=== PATIENT | female | born 1940 | race Caucasian/White ===

== ENCOUNTER → 2016-12-21 | Outpatient (CLI) | payer BC ==
[2016-12-21 12:27] LABS: CALCIUM 9.5 mg/dl (8.5-10.1)
[2016-12-21 12:35] LABS: CHOLESTEROL/HDL RATIO 2.2
== END | disposition home or self-care (01) ==
LOC: C.LAB 10:08
PROVIDERS: ATTEND Family Medicine
DX: E55.9 Vitamin D deficiency, unspecified (principal); M81.0 Age-related osteoporosis without current pathological fracture; E78.5 Hyperlipidemia, unspecified

== ENCOUNTER → 2017-03-27 | Outpatient (CLI) | payer BC ==
[2017-03-27 10:35] LABS: CHOLESTEROL/HDL RATIO 2.4
== END | disposition home or self-care (01) ==
LOC: C.LAB 09:19
PROVIDERS: ATTEND Family Medicine
DX: E78.5 Hyperlipidemia, unspecified (principal)

== ENCOUNTER → 2017-09-27 | Outpatient (CLI) | payer BC | END | disposition home or self-care (01) | LOC: C.LAB 10:26 | PROVIDERS: ATTEND Family Medicine | DX: E78.5 Hyperlipidemia, unspecified (principal); Z23 Encounter for immunization ==

== ENCOUNTER 2024-06-24 18:16 | Observation (INO) ==
[2024-06-24 22:59] LABS: Basophils # (auto) 0.09 K/uL (0.00-0.20); Basophils % (auto) 0.7 %; Eosinophils # (auto) 0.26 K/uL (0.00-0.50); Eosinophils % (auto) 2.1 %; Hemoglobin 12.6 g/dl (12.0-16.0); Immature Granulocytes # (auto) 0.04 K/uL (0.01-0.20); Immature Granulocytes % (auto) 0.3 %; Lymphocytes # (auto) 2.12 K/uL (1.20-3.40); Lymphocytes % (auto) 16.9 %; Mean Corpuscular Hemoglobin 28.9 pg (25.0-34.0); Mean Corpuscular Hgb Conc 31.5 g/dL (32.0-36.0); Mean Corpuscular Volume 91.7 fL (80.0-100.0); Mean Platelet Volume 10.6 fL (9.4-12.4); Monocytes # (auto) 0.66 K/uL (0.11-0.59); Monocytes % (auto) 5.3 %; Neutrophils # (auto) 9.36 K/uL (1.40-6.50); Neutrophils % (auto) 74.7 %; Platelet Count 278 K/uL (130-400); RDW Coefficient of Variation 14.6 % (11.5-14.5); RDW Standard Deviation 49.7 fL (36.4-46.3); Red Blood Count 4.36 M/uL (4.20-5.40); White Blood Count 12.53 K/ul (4.8-10.8)
[2024-06-24 23:12] LABS: Albumin Globulin Ratio 0.9 (0.9-2); Albumin Level 3.5 gm/dl (3.4-5.0); BUN Creatinine Ratio 19.1 (10-20); Bilirubin,Total 0.4 mg/dl (0.2-1.0); Calcium 9.2 mg/dl (8.6-10.3); Creatinine Clr Calc Pharmacy 39.9 ml/min; Globulin 3.7 gm/dl (2.5-4.0); Magnesium 2.2 mg/dl (1.7-2.4); Potassium 4.5 mmol/L (3.5-5.1); Total Protein 7.2 gm/dl (6.0-8.3)
[2024-06-24 23:19] LABS: Troponin I High Sensitivity 9.9 pg/ml (0-14)
[2024-06-24 23:29] LABS: Thyroid Stimulating Hormone 1.232 uIu/ml (0.300-4.500)
--- NOTE | 2024-06-24 23:30 | CT Scan Report ---
Exam(s): CT T SPINE EXAM: CT Thoracic Spine Without Intravenous Contrast CLINICAL HISTORY: Reason for exam: fall. TECHNIQUE: Axial computed tomography images of the thoracic spine without intravenous contrast. CTDI is 36.43 mGy and DLP is 1797.53 mGy-cm. Automated exposure control was utilized for the study. A dose lowering technique was utilized adhering to the principles of ALARA. COMPARISON: No relevant prior studies available. FINDINGS: Vertebrae: No fracture or malalignment. Soft tissues: Fibrotic changes in the lungs. IMPRESSION: No fracture or malalignment. Electronically signed by: Sanya Cardona MD 06/24/24 23:29 PM
--- NOTE | 2024-06-24 23:34 | CT Scan Report ---
Exam(s): CT L SPINE EXAM: CT Lumbar Spine Without Intravenous Contrast CLINICAL HISTORY: Reason for exam: fall. TECHNIQUE: Axial computed tomography images of the lumbar spine without intravenous contrast. CTDI is 36.43 mGy and DLP is 1797.53 mGy-cm. Automated exposure control was utilized for the study. A dose lowering technique was utilized adhering to the principles of ALARA. COMPARISON: No relevant prior studies available. FINDINGS: Vertebrae: No acute fracture or malalignment. Chronic superior endplate compression deformity at L3. No malalignment. No spinal canal or foraminal stenosis. Sacrum/coccyx: Insufficiency fracture in the left sacral ala. Discs/spinal canal/neural foramina: See above. Soft tissues: Unremarkable. IMPRESSION: 1. No acute fracture or malalignment. 2. Insufficiency fracture in the left sacral ala. 3. Chronic compression deformity of L3. Electronically signed by: Sanya Cardona MD 06/24/24 23:33 PM
[2024-06-24 23:38] LABS: Appearance Urine Cloudy (Clear); Bacteria Urine Automated 4+ (None Seen); Bilirubin Urine Negative (Negative); Blood Urine Negative (Negative); Cast Urine Automated 0-2 /lpf (0-2); Color Urine Yellow; Epithelial Cell Urine Auto 0-2 /hpf (0-2); Glucose Urine UA Negative (Negative); Ketones Urine Trace (Negative); Leukocyte Esterase Urine 1+ (Negative); Nitrite Urine Positive (Negative); Protein Urine Negative (Negative); RBC Urine Automated 0-2 /hpf (0-2); Specific Gravity Urine 1.018 (1.000-1.030); Urobilinogen Urine Negative (Negative); pH Urine 6.5 (4.5-7.5)
[2024-06-24] MEDS: SODIUM CHLORIDE 0.9% 1,000 ML IV ONE (23:38)
[2024-06-25] MEDS: cefTRIAXone SODIUM 2,000 MG/50 ML BAG IV STA (00:02)
--- NOTE | 2024-06-25 00:13 | XRay Report ---
Exam(s): XR CXR 1 VIEW EXAM: XR Chest, 1 View CLINICAL HISTORY: Reason for exam: weakness. TECHNIQUE: Frontal view of the chest. COMPARISON: Prior chest x-ray from December 23, 2015 FINDINGS: Lungs: Mild to moderate peribronchial thickening of the central and lower lobe bronchi with increased interstitial opacities throughout the lungs and patchy opacity at the left lung base. There is hyperinflation lungs and flattening of the diaphragms. Pleural space: Unremarkable. No pneumothorax. Heart: Unremarkable. No cardiomegaly. Mediastinum: Unremarkable. Normal mediastinal contour. Bones/joints: Diffuse osteopenia throughout the visualized bones. No acute fracture. IMPRESSION: Left lower lobe infiltrate. Electronically signed by: Yanely Tang MD 06/25/24 00:12 AM
--- NOTE | 2024-06-25 00:43 | CT Scan Report ---
Exam(s): CT HEAD Without Contrast EXAM: CT Head Without Intravenous Contrast CLINICAL HISTORY: Reason for exam: fall. TECHNIQUE: Axial computed tomography images of the head/brain without intravenous contrast. CTDI is 36.43 mGy and DLP is 1797.53 mGy-cm. Automated exposure control was utilized for the study. A dose lowering technique was utilized adhering to the principles of ALARA. COMPARISON: Prior head CT from June 23, 2024. FINDINGS: Brain: Unremarkable. No hemorrhage. Mild nonspecific Weitlaner changes. No edema. Ventricles: Moderate ventriculomegaly. Bones/joints: Unremarkable. No acute fracture. Soft tissues: Unremarkable. Sinuses: Unremarkable as visualized. No acute sinusitis. Mastoid air cells: Unremarkable as visualized. No mastoid effusion. IMPRESSION: No evidence of acute intracranial pathology. Electronically signed by: Yanely Tang MD 06/25/24 00:42 AM
--- NOTE | 2024-06-25 01:10 | Emergency Department Note ---
Impression & Plan Fall, Dementia, Pneumonia, Acute UTI ED Provider Note NAME: ALEKS AGARWAL AGE: 84 SEX: F : 1940 ARRIVES VIA: Ambulance INFORMANT: [Patient][] ED PROVIDER(S): [Jacoby Ramos MD] CHIEF COMPLAINT: Fall HISTORY OF PRESENT ILLNESS: The patient is an 84-year-old female who was here yesterday for a fall. CT imaging of the brain was performed and there was no acute intracranial bleeding. The patient does take blood thinning agents. The patient presents back today with a second fall. This time, she slid off of a chair. She was complaining of some back pain. The patient has dementia and is a poor historian. The is at bedside and was able to describe what happened to her today. The patient herself denies any complaints and does not really want to be in the ED. Her is concerned about a new injury. The believes his has been at her typical baseline health. He has not noticed any new issues. PMHx/PSHx/Social Hx: See Below PHYSICAL EXAM: GENERAL: Patient is in no acute distress. Quite anxious. HEENT: The patient does have an older contusion to the lateral aspect of the right eye. No bony step-off. NECK: No stridor, no adenopathy, nontender cervical spine, trachea is midline. LUNGS: Clear to auscultation bilaterally, no wheeze, no rhonchi, breath sounds equal. HEART: Somewhat irregular rhythm, mildly tachycardic, no obvious murmur. ABDOMEN: Soft, nontender, no peritonitis. EXTREMITIES: No cyanosis, full range of motion of all the joints without pain or difficulty. NEUROLOGIC: Anxious, confused, does move all extremities. SKIN: No jaundice, no diaphoresis. Back: She seems tender to the mid back although, there is no bony step-off, no contusion seen. DIFFERENTIAL DIAGNOSIS: Fracture, sprain, strain, UTI, pneumonia, electrolyte imbalance, dehydration, among others. EMERGENCY DEPARTMENT PROCEDURES: MEDICAL DECISION MAKING: There is a mild leukocytosis, this would be consistent with infection. There was a normal hemoglobin and platelet count. No renal failure or significant electrolyte abnormality. No concerning liver enzyme elevation. The patient appeared to be in a euthyroid state. ECG shows atrial fibrillation, no obvious ischemia. Cardiac enzyme testing x 1 is not consistent with acute cardiac injury. Patient appears to be in a euthyroid state. Urinalysis does show findings of infection. Chest x-ray shows a left lung pneumonia. Brain CT shows no acute bleed or mass effect. Thoracic and lumbar spine CT showed no acute fracture. Patient appears to have pneumonia as well as a UTI. I suspect these infections have caused some increasing weakness, confusion and likely, led to her falling the last few days. The patient was given IV ceftriaxone as antibiotic therapy. She had been ordered for Haldol to help with agitation however, this was apparently not needed. I spoke with the family, I spoke with case management. The patient is not safe for discharge. She will require a hospital stay, antibiotic therapy, may be some PT and OT and potentially placement if she is not able to be properly cared for by her . The on-call hospitalist was consulted. Prior/Outside records/notes reviewed: Today's EMS notes describing her presentation and transport to this hospital. ECG per my interpretation: Indication was fall. The ECG shows atrial fibrillation with a rate of 115. There is a PVC present. There is some nonspecific ST changes, no acute ST elevation. QTc was 423. Continuous Cardiac Monitoring per my interpretation: An order was placed for continuous cardiac monitoring. The monitor shows a rate of 14 with atrial fibrillation. Imaging/x-ray results per my interpretation: Chest x-ray shows a left base pneumonia. Chronic Medical/Social conditions affecting care: Advanced age, history of dementia. Care/Management discussed with: Case management, the on-call hospitalist. Level of care consideration(s): After review of the information above and other included data: --I believe the patient requires escalation of care to admission DISPOSITION: Admission Past Med/Surg History Problem List Acute UTI (Acute) Pneumonia (Acute) Fall (Acute) Agitation Confusion Urinary tract infection Left lower lobe pneumonia Contusion of right eyebrow (Acute) Fall from standing (Acute) Actinic keratosis (Acute) Bronchiectasis (Acute) Cerumen impaction (Acute) Cough (Acute) Dyslipidemia (Acute) Eustachian tube dysfunction (Acute) Glaucoma (Acute) History of basal cell carcinoma (Acute) History of squamous cell carcinoma of skin (Acute) Inflamed skin tag (Acute) Laryngopharyngeal reflux (Acute) Osteoporosis (Acute) Otalgia of right ear (Acute) Seborrheic keratosis (Acute) Shortness of breath (Acute) Vasomotor rhinitis (Acute) Vitamin D deficiency (Acute) Impacted cerumen of both ears High cholesterol (Chronic) Chronic cough (Chronic) Clavicle fracture (Acute) Medical History Dementia Surgical History (Updated 06/02/19 @ 11:12 by Yessenia Chamorro) History of mastectomy Family History (Updated 06/02/19 @ 11:12 by Yessenia Chamorro) Mother Cancer Father Stroke Heart disease Other Family history non-contributory Social History Smoking Status: Unknown if ever smoked Hx Alcohol Use: No Hx Substance Use: No Preferred Language: [place] Coke Burner Required: No Beliefs That Will Affect Care: None marital status: Current Living Situation: Spouse current occupational status: retired Other Information That Helps Us Care for You: No Feels Safe at Home: Yes Safety Concerns: Feels Safe At This Time Allergies Allergies Allergy/AdvReac Type Severity Reaction Status Date / Time brimonidine Allergy Mild . Verified 06/25/24 01:00 dorzolamide Allergy Mild . Verified 06/25/24 01:00 Carboxymethylcellulose Allergy Mild . Uncoded 06/25/24 01:00 Home Meds Home Medications Medication Instructions Recorded Confirmed aspirin 81 mg tablet,delayed 81 mg PO DAILY 01/15/19 06/25/24 release apixaban 2.5 mg tablet (Eliquis) 2.5 mg PO BID 06/25/24 06/25/24 cholecalciferol (vitamin D3) 25 25 mcg PO DAILY 06/25/24 06/25/24 mcg (1,000 unit) tablet (Vitamin D3) donepezil 5 mg tablet 5 mg PO HS 06/25/24 06/25/24 simvastatin 20 mg tablet 20 mg PO HS 06/25/24 06/25/24 Previous Rx's Medication Instructions Recorded diltiazem HCl 120 mg 120 mg PO DAILY #30 caps 01/15/19 capsule,extended release 24 hr (Cardizem CD) Results & Data (ED) Vital Signs Vital Signs - 24 hr 06/24/24 18:36 06/24/24 18:36 06/24/24 22:43 Temperature 36 C L Temperature Source Axillary Pulse Rate 96 H Pulse Rate [Right Finger] 89 Pulse Rhythm [Right Finger] Regular Pulse Strength [Right Finger] Normal Respiratory Rate 20 20 Respiratory Effort / Characteristics Non-Labored Non-Labored Non-Labored Respiratory Depth Normal Normal Normal Respiratory Pattern Regular Blood Pressure 142/81 H Blood Pressure [Right Arm] Blood Pressure Mean 101 Blood Pressure Mean [Right Arm] Pulse Oximetry 95 96 Oxygen Delivery Method Room Air Room Air Sepsis Recent Fever Within 48 Hours No Sepsis New/Unexplained Change in Mental Status No Sepsis Action Taken by Nursing No Action Required 06/24/24 22:43 06/24/24 23:41 06/25/24 01:29 Temperature Temperature Source Pulse Rate Pulse Rate [Right Finger] 105 H 107 H Pulse Rhythm [Right Finger] Regular Regular Pulse Strength [Right Finger] Normal Respiratory Rate 20 20 Respiratory Effort / Characteristics Non-Labored Spontaneous Labored Non-Labored Spontaneous Respiratory Depth Normal Normal Respiratory Pattern Regular Regular Blood Pressure Blood Pressure [Right Arm] 119/74 Blood Pressure Mean Blood Pressure Mean [Right Arm] 89 Pulse Oximetry 96 95 98 Oxygen Delivery Method Room Air Room Air Room Air Sepsis Recent Fever Within 48 Hours Sepsis New/Unexplained Change in Mental Status Sepsis Action Taken by Custodial Medications Current Medication List: was personally reviewed by me Laboratory Data Attestation: I reviewed the patient's lab results. 06/24/24 22:10 06/24/24 22:10 Lab Results 06/24/24 06/24/24 Range/Units 22:10 22:56 WBC 12.53 H (4.8-10.8) K/ul RBC 4.36 (4.20-5.40) M/uL Hgb 12.6 (12.0-16.0) g/dl Hct 40.0 (37.0-47.0) % MCV 91.7 (80.0-100.0) fL MCH 28.9 (25.0-34.0) pg MCHC 31.5 L (32.0-36.0) g/dL RDW Std Deviation 49.7 H (36.4-46.3) fL RDW Coeff of Brunilda 14.6 H (11.5-14.5) % Plt Count 278 (130-400) K/uL MPV 10.6 (9.4-12.4) fL Immature Gran % (Auto) 0.3 % Neut % (Auto) 74.7 % Lymph % (Auto) 16.9 % Burnett % (Auto) 5.3 % Eos % (Auto) 2.1 % Baso % (Auto) 0.7 % Neut # (Auto) 9.36 H (1.40-6.50) K/uL Lymph # (Auto) 2.12 (1.20-3.40) K/uL Burnett # (Auto) 0.66 H (0.11-0.59) K/uL Eos # (Auto) 0.26 (0.00-0.50) K/uL Baso # (Auto) 0.09 (0.00-0.20) K/uL Immature Gran # (Auto) 0.04 (0.01-0.20) K/uL Sodium 139 (136-145) mmol/L Potassium 4.5 (3.5-5.1) mmol/L Chloride 106 (98-107) mmol/L Carbon Dioxide 27 (21-32) mmol/L Anion Gap 6 (3-11) BUN 17 (6-23) mg/dl Creatinine 0.89 (0.6-1.2) mg/dl Est Cr Clr Drug Dosing 39.9 ml/min eGFR 63.49 BUN/Creatinine Ratio 19.1 (10-20) Glucose 87 (70-99(Fasting)) mg/dl Calcium 9.2 (8.6-10.3) mg/dl Magnesium 2.2 (1.7-2.4) mg/dl Total Bilirubin 0.4 (0.2-1.0) mg/dl AST 19 (13-39) U/L ALT 13 (7-52) U/L Alkaline Phosphatase 99 (34-104) U/L Troponin I High Sens 9.9 (0-14) pg/ml Total Protein 7.2 (6.0-8.3) gm/dl Albumin 3.5 (3.4-5.0) gm/dl Globulin 3.7 (2.5-4.0) gm/dl Albumin/Globulin Ratio 0.9 (0.9-2) TSH 1.232 (0.300-4.500) uIu/ml Urine Color Yellow Urine Appearance Cloudy A (Clear) Urine pH 6.5 (4.5-7.5) Ur Specific Wink 1.018 (1.000-1.030) Urine Protein Negative (Negative) Urine Glucose (UA) Negative (Negative) Urine Ketones Trace H (Negative) Urine Blood Negative (Negative) Urine Nitrite Positive A (Negative) Urine Bilirubin Negative (Negative) Urine Urobilinogen Negative (Negative) Ur Leukocyte Esterase 1+ H (Negative) Urine WBC (Auto) 11-20 H (0-5) /hpf Urine RBC (Auto) 0-2 (0-2) /hpf U Hyaline Cast (Auto) 0-2 (0-2) /lpf U Epithel Cells (Auto) 0-2 (0-2) /hpf Urine Bacteria (Auto) 4+ H (None Seen) Administered Medications Aspirin (Aspirin 81 Mg Ectab) 81 mg PO DAILY CHRISTINE Stop: 07/25/24 08:59 Last Admin: 06/25/24 10:32 Dose: 81 mg Documented By: TRACI Diltiazem HCl (Diltiazem Hcl 120 Mg Capcr) 120 mg PO QAM CHRISTINE Stop: 07/25/24 08:59 Last Admin: 06/25/24 10:31 Dose: 120 mg Documented By: TRACI Discontinued Medications Azithromycin (Azithromycin 250 Mg Tab) 500 mg PO NOW ONE Stop: 06/25/24 09:19 Last Admin: 06/25/24 10:31 Dose: 500 mg Documented By: TRACI Diphenhydramine HCl (Diphenhydramine 50 Mg/Ml Vial) 25 mg IM NOW STA Stop: 06/25/24 00:47 Last Admin: 06/25/24 01:31 Dose: Not Given Documented By: RASHIDA Haloperidol Lactate (Haloperidol Lactate 5 Mg/Ml 1 Ml Vial) 1 mg IV NOW STA Stop: 06/25/24 00:26 Last Admin: 06/25/24 01:16 Dose: Not Given Documented By: JEAN-PAUL Haloperidol Lactate (Haloperidol Lactate 5 Mg/Ml 1 Ml Vial) 2 mg IM NOW STA Stop: 06/25/24 00:47 Last Admin: 06/25/24 01:31 Dose: Not Given Documented By: RASHIDA Sodium Chloride (Nss) 1,000 mls @ 999 mls/hr IV .Q1H1M ONE Stop: 06/24/24 22:31 Last Infusion: 06/25/24 01:33 Dose: Infused Documented By: Admin: 06/24/24 23:38 Dose: 999 mls/hr Documented By: RASHIDA Ceftriaxone Sodium (Rocephin) 2,000 mg in 50 mls @ 100 mls/hr IV NOW STA Stop: 06/25/24 00:21 Last Infusion: 06/25/24 00:18 Dose: Infused Documented By: Admin: 06/25/24 00:02 Dose: 100 mls/hr Documented By: RASHIDA Lorazepam (Lorazepam 1 Mg/1 Ml Syr Ed Inj Use) 0.5 mg IV ONE STA Stop: 06/25/24 00:26 Last Admin: 06/25/24 01:16 Dose: Not Given Documented By: JEAN-PAUL Imaging Data Radiologist's Impression: Lumbar Spine CT 06/24/24 21:31 Exam(s): CT L SPINE EXAM: CT Lumbar Spine Without Intravenous Contrast CLINICAL HISTORY: Reason for exam: fall. TECHNIQUE: Axial computed tomography images of the lumbar spine without intravenous contrast. CTDI is 36.43 mGy and DLP is 1797.53 mGy-cm. Automated exposure control was utilized for the study. A dose lowering technique was utilized adhering to the principles of ALARA. COMPARISON: No relevant prior studies available. FINDINGS: Vertebrae: No acute fracture or malalignment. Chronic superior endplate compression deformity at L3. No malalignment. No spinal canal or foraminal stenosis. Sacrum/coccyx: Insufficiency fracture in the left sacral ala. Discs/spinal canal/neural foramina: See above. Soft tissues: Unremarkable. IMPRESSION: 1. No acute fracture or malalignment. 2. Insufficiency fracture in the left sacral ala. 3. Chronic compression deformity of L3. Electronically signed by: Sanya Cardona MD 06/24/24 23:[address] 06/24/24 21:31 Exam(s): CT T SPINE EXAM: CT Thoracic Spine Without Intravenous Contrast CLINICAL HISTORY: Reason for exam: fall. TECHNIQUE: Axial computed tomography images of the thoracic spine without intravenous contrast. CTDI is 36.43 mGy and DLP is 1797.53 mGy-cm. Automated exposure control was utilized for the study. A dose lowering technique was utilized adhering to the principles of ALARA. COMPARISON: No relevant prior studies available. FINDINGS: Vertebrae: No fracture or malalignment. Soft tissues: Fibrotic changes in the lungs. IMPRESSION: No fracture or malalignment. Electronically signed by: Sanya Cardona MD 06/24/24 23:29 PM Chest X-Ray 06/24/24 21:32 Exam(s): XR CXR 1 VIEW EXAM: XR Chest, 1 View CLINICAL HISTORY: Reason for exam: weakness. TECHNIQUE: Frontal view of the chest. COMPARISON: Prior chest x-ray from December 23, 2015 FINDINGS: Lungs: Mild to moderate peribronchial thickening of the central and lower lobe bronchi with increased interstitial opacities throughout the lungs and patchy opacity at the left lung base. There is hyperinflation lungs and flattening of the diaphragms. Pleural space: Unremarkable. No pneumothorax. Heart: Unremarkable. No cardiomegaly. Mediastinum: Unremarkable. Normal mediastinal contour. Bones/joints: Diffuse osteopenia throughout the visualized bones. No acute fracture. IMPRESSION: Left lower lobe infiltrate. Electronically signed by: Yanely Tang MD 06/25/24 00:[address] 06/24/24 21:32 Exam(s): CT HEAD Without Contrast EXAM: CT Head Without Intravenous Contrast CLINICAL HISTORY: Reason for exam: fall. TECHNIQUE: Axial computed tomography images of the head/brain without intravenous contrast. CTDI is 36.43 mGy and DLP is 1797.53 mGy-cm. Automated exposure control was utilized for the study. A dose lowering technique was utilized adhering to the principles of ALARA. COMPARISON: Prior head CT from June 23, 2024. FINDINGS: Brain: Unremarkable. No hemorrhage. Mild nonspecific Weitlaner changes. No edema. Ventricles: Moderate ventriculomegaly. Bones/joints: Unremarkable. No acute fracture. Soft tissues: Unremarkable. Sinuses: Unremarkable as visualized. No acute sinusitis. Mastoid air cells: Unremarkable as visualized. No mastoid effusion. IMPRESSION: No evidence of acute intracranial pathology. Electronically signed by: Yanely Tang MD 06/25/24 00:42 AM Discharge Plan Visit Data Chief Complaint: Fall Stated Complaint: FALL ED Provider: Jacoby Ramos Discharge Problem: Fall, Dementia, Pneumonia, Acute UTI Patient Disposition: Admitted As Inpatient Condition: Fair Discharge Instructions Interventions: ED Discharge Assessment Last Done: 06/25/24 12:55 Discharge Problem: Fall Qualifiers: Encounter type: initial encounter Qualified Code(s): W19.XXXA - Unspecified fall, initial encounter Dementia Qualifiers: Dementia type: unspecified type Dementia severity: severe Dementia behavioral or psychological symptom: with agitation Qualified Code(s): F03.C11 - Unspecified dementia, severe, with agitation Pneumonia Qualifiers: Pneumonia type: due to unspecified organism Laterality: left Lung location: l ower lobe of lung Qualified Code(s): J18.9 - Pneumonia, unspecified organism
[2024-06-25] MEDS: HALOPERIDOL LACTATE 5 MG/ML 1 ML VIAL IV STA (01:16)
[2024-06-25] MEDS: LORazepam 1 MG/1 ML SYR ED Inj Use IV STA (01:16)
[2024-06-25] MEDS: diphenhydrAMINE 50 MG/ML VIAL IM STA (01:31)
[2024-06-25] MEDS: HALOPERIDOL LACTATE 5 MG/ML 1 ML VIAL IM STA (01:31)
--- NOTE | 2024-06-25 01:44 | History & Physical Report ---
Date of Service June 25, 2024 Assessment & Plan (1) Fall from standing: (2) Left lower lobe pneumonia: (3) Urinary tract infection: (4) Confusion: (5) Agitation: Plan The patient is a 84-year-old female with a past medical history including basal cell carcinoma, glaucoma, squamous cell skin cancer, vasomotor rhinitis, hyperlipidemia, dementia, memory loss, chronic anticoagulation with apixaban, and hyperlipidemia.The patient was brought to the emergency department on 06/23 due to a fall from standing, sustaining a contusion of the right eyebrow without contrast, and CT scan of cervical spine, they are both negative for acute findings. She was discharged home with family at that time. The patient returns to the emergency department today, 06/24, with report of a second fall, this time she slid off of a chair, and was complaining of some back pain. The patient himself has dementia and is a poor historian, and her who is with her, supplies most of the information for HPI and ROS. Workup in the emergency department this evening also includes suggestion of urinary tract infection, and left lower lobe pneumonia, for which the patient initially received ceftriaxone IV, and after her IV infiltrated, refused any further IV treatment. It was felt that the patient was not well enough to go home, and agrees that the patient should be admitted, however, patient at this time is still refusing any further IV treatment. She did receive ceftriaxone IV earlier this evening, and if she agrees to further IV treatment, this will be continued as a admission progresses. #Status post fall on 06/23 and 06/24- May be secondary to generalized weakness associated with urinary tract infection and left lower lobe pneumonia If patient is agreeable we will schedule PT/OT consult #Urinary tract infection- Follow urine culture and sensitivity Patient did receive ceftriaxone 2 g IV x 1 from the ED before her IV infiltrated and refused any further treatment at that point Patient would benefit from IV fluid resuscitation, however, she is refusing IV at this time #Left lower lobe pneumonia- As above, patient did receive a single dose of ceftriaxone Would again benefit from further treatment, however, she is refusing at this time her oxygenation has improved to 98% on room air #Dementia/memory dysfunction/intermittent agitation- Will attempt to continue donepezil and aspirin Hold on any further medication to minimize agitation at selective intervention attempts Her will stay with her overnight while in the hospital #Chronic medical issues: Chronic anticoagulation-holding apixaban at this time due to recent falls, and need for clarification as to why she is on Hypertension-blood pressure is acceptable at this time. Will place diltiazem CD1 20 mg on for the a.m. History of Present Illness Chief Complaint: The patient was brought to the emergency department on 06/23 due to a fall from standing, sustaining a contusion of the right eyebrow without contrast, and CT scan of cervical spine, they are both negative for acute findings. She was discharged home with family at that time. The patient returns to the emergency department today, 06/24, with report of a second fall, this time she slid off of a chair, and was complaining of some back pain. The patient himself has dementia and is a poor historian, and her who is with her, supplies most of the information for HPI and ROS. Workup in the emergency department this evening also includes suggestion of urinary tract infection, and left lower lobe pneumonia, for which the patient initially received ceftriaxone IV, and after her IV infiltrated, refused any further IV treatment. It was felt that the patient was not well enough to go home, and agrees that the patient should be admitted, however, patient at this time is still refusing any further IV treatment. She did receive ceftriaxone IV earlier this evening, and if she agrees to further IV treatment, this will be continued as a admission progresses. Primary Care Provider: Kayden Jensen MD The patient is a 84-year-old female with a past medical history including basal cell carcinoma, glaucoma, squamous cell skin cancer, vasomotor rhinitis, hyperlipidemia, dementia, memory loss, chronic anticoagulation with apixaban, and hyperlipidemia.The patient was brought to the emergency department on 06/23 due to a fall from standing, sustaining a contusion of the right eyebrow without contrast, and CT scan of cervical spine, they are both negative for acute findings. She was discharged home with family at that time. The patient returns to the emergency department today, 06/24, with report of a second fall, this time she slid off of a chair, and was complaining of some back pain. The patient himself has dementia and is a poor historian, and her who is with her, supplies most of the information for HPI and ROS. Workup in the emergency department this evening also includes suggestion of urinary tract infection, and left lower lobe pneumonia, for which the patient initially received ceftriaxone IV, and after her IV infiltrated, refused any further IV treatment. It was felt that the patient was not well enough to go home, and agrees that the patient should be admitted, however, patient at this time is still refusing any further IV treatment. She did receive ceftriaxone IV earlier this evening, and if she agrees to further IV treatment, this will be continued as a admission progresses. Allergies Allergy/AdvReac Type Severity Reaction Status Date / Time brimonidine Allergy Mild . Verified 06/25/24 01:00 dorzolamide Allergy Mild . Verified 06/25/24 01:00 Carboxymethylcellulose Allergy Mild . Uncoded 06/25/24 01:00 Home Medications Medication Instructions Recorded Confirmed Type aspirin 81 mg tablet,delayed 81 mg PO DAILY 01/15/19 06/25/24 History release diltiazem HCl 120 mg 120 mg PO DAILY #30 caps 01/15/19 06/25/24 Rx capsule,extended release 24 hr (Cardizem CD) apixaban 2.5 mg tablet (Eliquis) 2.5 mg PO BID 06/25/24 06/25/24 History cholecalciferol (vitamin D3) 25 25 mcg PO DAILY 06/25/24 06/25/24 History mcg (1,000 unit) tablet (Vitamin D3) donepezil 5 mg tablet 5 mg PO HS 06/25/24 06/25/24 History simvastatin 20 mg tablet 20 mg PO HS 06/25/24 06/25/24 History Past Med/Surg History Problem List (Updated 06/25/24 @ 03:53 by Alton Byrd MD) Agitation Confusion Urinary tract infection Left lower lobe pneumonia Contusion of right eyebrow (Acute) Fall from standing (Acute) Actinic keratosis (Acute) Bronchiectasis (Acute) Cerumen impaction (Acute) Cough (Acute) Dyslipidemia (Acute) Eustachian tube dysfunction (Acute) Glaucoma (Acute) History of basal cell carcinoma (Acute) History of squamous cell carcinoma of skin (Acute) Inflamed skin tag (Acute) Laryngopharyngeal reflux (Acute) Osteoporosis (Acute) Otalgia of right ear (Acute) Seborrheic keratosis (Acute) Shortness of breath (Acute) Vasomotor rhinitis (Acute) Vitamin D deficiency (Acute) Impacted cerumen of both ears High cholesterol (Chronic) Chronic cough (Chronic) Clavicle fracture (Acute) Surgical History (Updated 06/02/19 @ 11:12 by Yessenia Chamorro) History of mastectomy Family History (Updated 06/02/19 @ 11:12 by Yessenia Chamorro) Mother Cancer Father Stroke Heart disease Other Family history non-contributory Social History (Updated 06/02/19 @ 11:11 by Yessenia Chamorro) Smoking Status: Never smoker Hx Alcohol Use: Yes Alcohol Intake Frequency Comment: social Preferred Language: Micronesian marital status: current occupational status: retired Feels Safe at Home: Yes Review of Systems Review of Systems: HPI and ROS are provided by her , who is in attendance, and who will stay with the patient overnight, due to patient's mild agitation and resistance to further IV treatments after her present IV infiltrated Physical Exam Physical Exam: The patient is awake, confused and mildly agitated, arguing with her , normocephalic and atraumatic, lying in bed and in no acute distress. HEENT--PERRL, EOMI, mucous membranes and oropharynx mildly dry. Neck--supple. No JVD. No bruits. Thyroid normal, trachea midline, no adenopathy. Heart--normal S1 and S2. No murmurs, rubs or gallops. Lungs--clear bilaterally, no respiratory distress, no accessory muscle use. Abdomen--normal bowel sounds and soft. Nontender. Nondistended, no hernias or masses, no organomegaly. Extremities--no cyanosis or clubbing. No edema. Dermatologic--skin is dry Neurologic--cranial nerves II through XII grossly intact. Rheumatologic--normal range of motion. Psychiatric--mildly agitated intermittently Results & Data Results & Data Vital Signs (Past 12 Hours) Vital Signs Temp Pulse Pulse Resp BP BP Pulse Ox 06/25/24 01:29 107 H 20 98 06/24/24 23:41 105 H 20 119/74 95 06/24/24 22:43 96 06/24/24 22:43 89 20 96 06/24/24 18:36 36 C L 96 H 20 142/81 H 95 O2 Del Method 06/25/24 01:29 Room Air 06/24/24 23:41 Room Air 06/24/24 22:43 Room Air 06/24/24 22:43 Room Air 06/24/24 18:36 Room Air Laboratory Results Laboratory Results WBC 12.53 K/ul (4.8-10.8) H 06/24/24 22:10 RBC 4.36 M/uL (4.20-5.40) 06/24/24 22:10 Hgb 12.6 g/dl (12.0-16.0) 06/24/24 22:10 Hct 40.0 % (37.0-47.0) 06/24/24 22:10 MCV 91.7 fL (80.0-100.0) 06/24/24 22:10 MCH 28.9 pg (25.0-34.0) 06/24/24 22:10 MCHC 31.5 g/dL (32.0-36.0) L 06/24/24 22:10 RDW Std Deviation 49.7 fL (36.4-46.3) H 06/24/24 22:10 RDW Coeff of Brunilda 14.6 % (11.5-14.5) H 06/24/24 22:10 Plt Count 278 K/uL (130-400) 06/24/24 22:10 MPV 10.6 fL (9.4-12.4) 06/24/24 22:10 Immature Gran % (Auto) 0.3 % 06/24/24 22:10 Neut % (Auto) 74.7 % 06/24/24 22:10 Lymph % (Auto) 16.9 % 06/24/24 22:10 Mercer % (Auto) 5.3 % 06/24/24 22:10 Eos % (Auto) 2.1 % 06/24/24 22:10 Baso % (Auto) 0.7 % 06/24/24 22:10 Neut # (Auto) 9.36 K/uL (1.40-6.50) H 06/24/24 22:10 Lymph # (Auto) 2.12 K/uL (1.20-3.40) 06/24/24 22:10 Mercer # (Auto) 0.66 K/uL (0.11-0.59) H 06/24/24 22:10 Eos # (Auto) 0.26 K/uL (0.00-0.50) 06/24/24 22:10 Baso # (Auto) 0.09 K/uL (0.00-0.20) 06/24/24 22:10 Immature Gran # (Auto) 0.04 K/uL (0.01-0.20) 06/24/24 22:10 Sodium 139 mmol/L (136-145) 06/24/24 22:10 Potassium 4.5 mmol/L (3.5-5.1) 06/24/24 22:10 Chloride 106 mmol/L (98-107) 06/24/24 22:10 Carbon Dioxide 27 mmol/L (21-32) 06/24/24 22:10 Anion Gap 6 (3-11) 06/24/24 22:10 BUN 17 mg/dl (6-23) 06/24/24 22:10 Creatinine 0.89 mg/dl (0.6-1.2) 06/24/24 22:10 Est Cr Clr Drug Dosing 39.9 ml/min 06/24/24 22:10 eGFR 63.49 06/24/24 22:10 BUN/Creatinine Ratio 19.1 (10-20) 06/24/24 22:10 Glucose 87 mg/dl (70-99(Fasting)) 06/24/24 22:10 Calcium 9.2 mg/dl (8.6-10.3) 06/24/24 22:10 Magnesium 2.2 mg/dl (1.7-2.4) 06/24/24 22:10 Total Bilirubin 0.4 mg/dl (0.2-1.0) 06/24/24 22:10 AST 19 U/L (13-39) 06/24/24 22:10 ALT 13 U/L (7-52) 06/24/24 22:10 Alkaline Phosphatase 99 U/L (34-104) 06/24/24 22:10 Troponin I High Sens 9.9 pg/ml (0-14) 06/24/24 22:10 Total Protein 7.2 gm/dl (6.0-8.3) 06/24/24 22:10 Albumin 3.5 gm/dl (3.4-5.0) 06/24/24 22:10 Globulin 3.7 gm/dl (2.5-4.0) 06/24/24 22:10 Albumin/Globulin Ratio 0.9 (0.9-2) 06/24/24 22:10 TSH 1.232 uIu/ml (0.300-4.500) 06/24/24 22:10 Urine Color Yellow 06/24/24 22:56 Urine Appearance Cloudy (Clear) A 06/24/24 22:56 Urine pH 6.5 (4.5-7.5) 06/24/24 22:56 Ur Specific [place] 1.018 (1.000-1.030) 06/24/24 22:56 Urine Protein Negative (Negative) 06/24/24 22:56 Urine Glucose (UA) Negative (Negative) 06/24/24 22:56 Urine Ketones Trace (Negative) H 06/24/24 22:56 Urine Blood Negative (Negative) 06/24/24: Urine Nitrite Positive (Negative) A 06/24/24 22:56 Urine Bilirubin Negative (Negative) 06/24/24:56 Urine Urobilinogen Negative (Negative) 06/24/24 22:56 Ur Leukocyte Esterase 1+ (Negative) H 06/24/24 22:56 Urine WBC (Auto) 11-20 /hpf (0-5) H 06/24/24 22:56 Urine RBC (Auto) 0-2 /hpf (0-2) 06/24/24 22:56 U Hyaline Cast (Auto) 0-2 /lpf (0-2) 06/24/24 22:56 U Epithel Cells (Auto) 0-2 /hpf (0-2) 06/24/24 22:56 Urine Bacteria (Auto) 4+ (None Seen) H 06/24/24 22:[address] 06/24/24 21:31 Exam(s): CT L SPINE EXAM: CT Lumbar Spine Without Intravenous Contrast CLINICAL HISTORY: Reason for exam: fall. TECHNIQUE: Axial computed tomography images of the lumbar spine without intravenous contrast. CTDI is 36.43 mGy and DLP is 1797.53 mGy-cm. Automated exposure control was utilized for the study. A dose lowering technique was utilized adhering to the principles of ALARA. COMPARISON: No relevant prior studies available. FINDINGS: Vertebrae: No acute fracture or malalignment. Chronic superior endplate compression deformity at L3. No malalignment. No spinal canal or foraminal stenosis. Sacrum/coccyx: Insufficiency fracture in the left sacral ala. Discs/spinal canal/neural foramina: See above. Soft tissues: Unremarkable. IMPRESSION: 1. No acute fracture or malalignment. 2. Insufficiency fracture in the left sacral ala. 3. Chronic compression deformity of L3. Electronically signed by: Sanya Cardona MD 06/24/24 23:[address] 06/24/24 21:31 Exam(s): CT T SPINE EXAM: CT Thoracic Spine Without Intravenous Contrast CLINICAL HISTORY: Reason for exam: fall. TECHNIQUE: Axial computed tomography images of the thoracic spine without intravenous contrast. CTDI is 36.43 mGy and DLP is 1797.53 mGy-cm. Automated exposure control was utilized for the study. A dose lowering technique was utilized adhering to the principles of ALARA. COMPARISON: No relevant prior studies available. FINDINGS: Vertebrae: No fracture or malalignment. Soft tissues: Fibrotic changes in the lungs. IMPRESSION: No fracture or malalignment. Electronically signed by: Sanya Cardona MD 06/24/24 23:29 PM Chest X-Ray 06/24/24 21:32 Exam(s): XR CXR 1 VIEW EXAM: XR Chest, 1 View CLINICAL HISTORY: Reason for exam: weakness. TECHNIQUE: Frontal view of the chest. COMPARISON: Prior chest x-ray from December 23, 2015 FINDINGS: Lungs: Mild to moderate peribronchial thickening of the central and lower lobe bronchi with increased interstitial opacities throughout the lungs and patchy opacity at the left lung base. There is hyperinflation lungs and flattening of the diaphragms. Pleural space: Unremarkable. No pneumothorax. Heart: Unremarkable. No cardiomegaly. Mediastinum: Unremarkable. Normal mediastinal contour. Bones/joints: Diffuse osteopenia throughout the visualized bones. No acute fracture. IMPRESSION: Left lower lobe infiltrate. Electronically signed by: Yanely Tang MD 06/25/24 00:[address] 06/24/24 21:32 Exam(s): CT HEAD Without Contrast EXAM: CT Head Without Intravenous Contrast CLINICAL HISTORY: Reason for exam: fall. TECHNIQUE: Axial computed tomography images of the head/brain without intravenous contrast. CTDI is 36.43 mGy and DLP is 1797.53 mGy-cm. Automated exposure control was utilized for the study. A dose lowering technique was utilized adhering to the principles of ALARA. COMPARISON: Prior head CT from June 23, 2024. FINDINGS: Brain: Unremarkable. No hemorrhage. Mild nonspecific We[place]laner changes. No edema. Ventricles: Moderate ventriculomegaly. Bones/joints: Unremarkable. No acute fracture. Soft tissues: Unremarkable. Sinuses: Unremarkable as visualized. No acute sinusitis. Mastoid air cells: Unremarkable as visualized. No mastoid effusion. IMPRESSION: No evidence of acute intracranial pathology. Electronically signed by: Yanely Tang MD 06/25/24 00:42 AM Code Status & VTE Plan Code Status Full code VTE Prophylaxis Plan VTE Prophylaxis will be ordered: Yes PG Care Time/CCT Total # of Minutes Spent Total Time Spent with Patient: Total time spent is greater than 50% in coordination of care (as documented) at patient's floor/unit and/or counseling patient: Coding Level of Care Code 17419 INT INP/OBS CARE 3/75MIN Diagnoses Fall from standing W19.XXXA Left lower lobe pneumonia J18.9 Urinary tract infection N39.0 Confusion R41.0 Agitation R45.1
[2024-06-25] MEDS: dilTIAZem HCL 120 MG CAPCR PO SCH (10:31)
[2024-06-25] MEDS: AZITHROMYCIN 250 MG TAB PO ONE (10:31)
[2024-06-25] MEDS: ASPIRIN 81 MG ECTAB PO SCH (10:32)
--- NOTE | 2024-06-25 12:46 | Electrocardiogram Report ---
Test Reason : Blood Pressure : */* mmHG Vent. Rate : 115 BPM Atrial Rate : * BPM P-R Int : * ms QRS Dur : 72 ms QT Int : 306 ms P-R-T Axes : * 83 261 degrees QTcB Int : 423 ms Atrial fibrillation with rapid ventricular response with premature ventricular or aberrantly conducte d complexes Low voltage QRS Nonspecific ST and T wave abnormality Abnormal ECG When compared with ECG of 15-Jan-2019 17:23, Atrial fibrillation has replaced Atrial flutter Nonspecific T wave abnormality, worse in Lateral leads Confirmed by Ryder Briggs ([id number]) on 06/25/2024 12:45:53 PM Referred By: [facility] Confirmed By: Ryder Briggs
--- NOTE | 2024-06-25 14:25 | Hospitalist Progress Note ---
Date of Service June 25, 2024 Assessment & Plan (1) Fall from standing: (2) Left lower lobe pneumonia: (3) Urinary tract infection: (4) Confusion: (5) Agitation: Plan Ann Marie is a 84-year-old female with a past medical history of basal cell carcinoma, glaucoma, squamous cell skin cancer, vasomotor rhinitis, hyperlipidemia, dementia, afib (on Eliquis), and hyperlipidemia.The patient was brought to the ED on 06/23 due to a fall from standing, sustaining a contusion of the right eyebrow. CT head/cervical spine at that time negative for acute findings and discharged home. Returns to the ED06/24, with second fall, sliding off of a chair. Ann Marie is a poor historian, and her , supplies most of the information for HPI and ROS. Inital workup showing UTI and left lower lobe pneumonia. #Multiple Falls / Sacral insufficiency fracture Secondary to urinary tract infection and left lower lobe pneumonia Pain control and mobilization for sacral fracture PT/OT #Urinary tract infection / LLL PNA Urine culture: pending Blood cultures pending. Received Ceftriaxone x1 but IV infiltrated and refusing further. Will treat with PO Augmentin and Azithromycin. #Dementia/memory dysfunction/intermittent agitation- Continue donepezil and aspirin Hold on any further medication to minimize agitation at selective intervention attempts Her will stay with her overnight while in the hospital #Afib - continue Eliquis and Diltiazem Dispo: continued inpatient stay, awaiting PT/OT evals, suspect will need rehab placement DVT proh: resume Eliquis for PM updated by phone 06/25 Admission and Anticipated Discharge Date Admission Date: June 25, 2024 Supervising Physician Co-Signing Physician Notes PA Supervision Note: I did not personally see or examine the patient today, but I verified all rizzo points of JAH Almaraz's assessment and plan with the following exceptions/additions: None Subjective Patient seen while holding in the ED. She is talking to her when I walk in, Seems to be very calm by this. She denies having any pain at present. Stating that she is hungry. She has not been out of bed yet per my discussion with her bedside manager of compensation of Systems Review of Systems: All systems reviewed & are unremarkable except as noted in Subjective Physical Exam Physical Exam: General: NAD, VS as above Resp: normal respiratory effort, lungs clear to auscultation CV: RRR, no murmur, Abd: normal bowel sounds, non tender, no hepatosplenomegaly Extremities: Moves all extremities,able to wiggle toes bilaterally Neuro: A&O x1, Results & Data Results & Data Vital Signs (Past 12 Hours) Vital Signs Temp Pulse Pulse Resp BP BP Pulse Ox 06/25/24 12:55 100 H 16 135/90 98 06/25/24 10:29 112 H 18 125/94 98 06/25/24 07:18 95 H 126/79 95 06/25/24 03:43 98.2 F 118 H 21 126/75 98 06/25/24 03:42 110 H O2 Del Method 06/25/24 12:55 Room Air 06/25/24 10:29 Room Air 06/25/24 07:18 Room Air 06/25/24 03:43 Room Air 06/25/24 03:42 PG Care Time/CCT Total # of Minutes Spent Total Time Spent with Patient: Total time spent is greater than 50% in coordination of care (as documented) at patient's floor/unit and/or counseling patient: Coding Level of Care Code None Diagnoses Fall from standing W19.XXXA Left lower lobe pneumonia J18.9 Urinary tract infection N39.0 Confusion R41.0 Agitation R45.1
[2024-06-25] MEDS: AMOXICILLIN/CLAVULANATE 875 MG TAB PO SCH (18:07)
[2024-06-25] MEDS: APIXABAN 2.5 MG TAB PO SCH (20:58)
[2024-06-25] MEDS: SIMVASTATIN 20 MG TAB PO SCH (20:58)
[2024-06-25] MEDS: DONEPEZIL HCL 5 MG TAB PO SCH (20:58)
[2024-06-26 08:32] LABS: Hematocrit (blood only) 38.3 % (37.0-47.0); Mean Corpuscular Hemoglobin 28.5 pg (25.0-34.0); Mean Corpuscular Hgb Conc 31.3 g/dL (32.0-36.0); Mean Platelet Volume 10.2 fL (9.4-12.4); Platelet Count 251 K/uL (130-400); RDW Coefficient of Variation 14.8 % (11.5-14.5); RDW Standard Deviation 49.7 fL (36.4-46.3); Red Blood Count 4.21 M/uL (4.20-5.40); White Blood Count 8.61 K/ul (4.8-10.8)
[2024-06-26 08:51] LABS: BUN Creatinine Ratio 12.2 (10-20); Calcium 8.6 mg/dl (8.6-10.3); Creatinine Clr Calc Pharmacy 43.3 ml/min; Potassium 4.6 mmol/L (3.5-5.1)
[2024-06-26] MEDS: AZITHROMYCIN 250 MG TAB PO SCH (09:53)
[2024-06-26] MEDS: ACETAMINOPHEN 325 MG TAB PO PRN (09:59)
--- NOTE | 2024-06-26 15:41 | Hospitalist Progress Note ---
Date of Service June 26, 2024 Assessment & Plan (1) Fall from standing: (2) Left lower lobe pneumonia: (3) Urinary tract infection: (4) Confusion: (5) Agitation: Plan Ann Marie is a 84-year-old female with a past medical history of basal cell carcinoma, glaucoma, squamous cell skin cancer, vasomotor rhinitis, hyperlipidemia, dementia, afib (on Eliquis), and hyperlipidemia.The patient was brought to the ED on 06/23 due to a fall from standing, sustaining a contusion of the right eyebrow. CT head/cervical spine at that time negative for acute findings and discharged home. Returns to the ED06/24, with second fall, sliding off of a chair. Ann Marie is a poor historian, and her , supplies most of the information for HPI and ROS. Inital workup showing UTI and left lower lobe pneumonia. #Multiple Falls / Sacral insufficiency fracture Secondary to urinary tract infection and left lower lobe pneumonia Pain control and mobilization for sacral fracture PT/OT - recommend rehab #Urinary tract infection / LLL PNA Urine culture: e. coli, sensitives pending. Blood cultures: no growth 24 hours . Received Ceftriaxone x1 but IV infiltrated and refusing further. Will treat with PO Augmentin and Azithromycin. #Dementia/memory dysfunction/intermittent agitation- Continue donepezil and aspirin Hold on any further medication to minimize agitation at selective intervention attempts #Afib - continue Eliquis and Diltiazem Dispo: continued inpatient stay, need rehab placement DVT proh: resume Eliquis for PM updated by phone 06/25 and in person 06/26 Attempted to call sonpaige per 's request. But number just rings and rings, unable to leave VM Admission and Anticipated Discharge Date Admission Date: June 25, 2024 Supervising Physician Co-Signing Physician Notes PA Supervision Note: I did not personally see or examine the patient today, but I verified all rizzo points of JAH Almaraz's assessment and plan with the following exceptions/additions: None Subjective Patient seen lying in bed, present at bedside. Much more alert and smiling when her walked in Denies pain no cough poor appetite Review of Systems Review of Systems: All systems reviewed & are unremarkable except as noted in Subjective Physical Exam Physical Exam: General: NAD, VS as above Resp: normal respiratory effort, lungs clear to auscultation CV: afib, no murmur, Abd: normal bowel sounds, non tender, no hepatosplenomegaly Extremities: Moves all extremities,able to wiggle toes bilaterally Neuro: A&O x1, Results & Data Results & Data Vital Signs (Past 12 Hours) Vital Signs Temp Pulse Resp BP Pulse Ox Pulse Ox O2 Del Method 06/26/24 12:41 93 06/26/24 08:01 98.2 F 87 18 118/73 98 Room Air O2 Flow Rate 06/26/24 12:41 0 06/26/24 08:01 Laboratory Results cbc and chemistry reviewed URine culture reviewed PG Care Time/CCT Total # of Minutes Spent Total Time Spent with Patient: Total time spent is greater than 50% in coordination of care (as documented) at patient's floor/unit and/or counseling patient: Coding Level of Care Code 59899 SUB INP/OBS CARE 3/50MIN Diagnoses Fall from standing W19.XXXA Encounter type: initial encounter Left lower lobe pneumonia J18.9 Urinary tract infection N39.0 Confusion R41.0 Agitation R45.1 (1) Fall from standing Encounter type: initial encounter Qualified Code(s): W19.XXXA - Unspecified fall, initial encounter
[2024-06-27 05:36] VITALS: O2SAT 98
[2024-06-27 07:55] VITALS: BP 121/77; PULSE 98; RESP 16; TEMP 98.1
--- NOTE | 2024-06-27 09:03 | Discharge Summary ---
Discharge Summary Date of Service June 27, 2024 Principal Dx & Hospital Course #1 = Principal Diagnosis (1) Fall from standing: (2) Left lower lobe pneumonia: (3) Urinary tract infection: (4) Confusion: (5) Agitation: Plan #Multiple Falls / Sacral insufficiency fracture #Urinary tract infection / LLL PNA Ann Marie is a 84-year-old female with a past medical history of basal cell carcinoma, glaucoma, squamous cell skin cancer, vasomotor rhinitis, hyperlipidemia, dementia, afib (on Eliquis), and hyperlipidemia.The patient was brought to the ED on 06/23 due to a fall from standing, sustaining a contusion of the right eyebrow. CT head/cervical spine at that time negative for acute findings and discharged home. Returns to the ED 06/24, with second fall, sliding off of a chair. Head CT and T-spine CT without acute findings. L-spine CT showed sacral insufficiency fracture of left ala - nonoperative, continue with pain control and mobilization. Initial workup showing UTI and left lower lobe pneumonia. Ann Marie was initially treated with IV Ceftriaxone, however IV Infiltrated and would not allow placement of a new one. Her Urine culture grew alanis sensitive E.Coli. She was treated with Azithromycin and Augmentin and this will be continued at discharge. Evaluated by PT/OT that recommended rehab and she will be discharged to the [facility] today for rehab. She has blood cultures pending, they are negative at 48 hours. Check a repeat CXR in 4-6 weeks to ensure resolution of PNA #Dementia/memory dysfunction/intermittent agitation- Continue donepezil and aspirin Cognitive status has improved with treatment of infection. #Afib - continue Eliquis and Diltiazem Dispo: discharge to rehab today updated by phone 06/25 and in person 06/26 Attempted to call sonpaige per 's request 06/26. But number just rings and rings, unable to leave VM Notes For Next Care Provider Medication Changes From Visit Augmentin BID x 4 days azithromycin x 2 days Admission HPI Per Admitting Provider The patient is a 84-year-old female with a past medical history including basal cell carcinoma, glaucoma, squamous cell skin cancer, vasomotor rhinitis, hyperlipidemia, dementia, memory loss, chronic anticoagulation with apixaban, and hyperlipidemia.The patient was brought to the emergency department on 06/23 due to a fall from standing, sustaining a contusion of the right eyebrow without contrast, and CT scan of cervical spine, they are both negative for acute findings. She was discharged home with family at that time. The patient returns to the emergency department today, 06/24, with report of a second fall, this time she slid off of a chair, and was complaining of some back pain. The patient himself has dementia and is a poor historian, and her who is with her, supplies most of the information for HPI and ROS. Workup in the emergency department this evening also includes suggestion of urinary tract infection, and left lower lobe pneumonia, for which the patient initially r eceived ceftriaxone IV, and after her IV infiltrated, refused any further IV treatment. It was felt that the patient was not well enough to go home, and agrees that the patient should be admitted, however, patient at this time is still refusing any further IV treatment. She did receive ceftriaxone IV earlier this evening, and if she agrees to further IV treatment, this will be continued as a admission progresses. Discharge Exam General: NAD, VS as above Resp: normal respiratory effort, lungs clear to auscultation CV: afib, no murmur, Abd: normal bowel sounds, non tender, no hepatosplenomegaly Extremities: Moves all extremities,able to wiggle toes bilaterally Neuro: A&O x2, Discharge Plan Discharge Items Patient Disposition: Transfer [facility] Reason For Visit: CONFUSION, AGITATION, DEMENTIA, UTI, LLL PNEUMONIA Discharge Diagnosis: UTI/Pneumonia Condition on Discharge: Fair Activity: As commented below Activity Comment: work with therapy to get stronger Weightbearing: Full weightbearing Non-emergency contact: Primary Care Provider Call non-emergency contact if: you have any medication questions, your symptoms worsen, your pain is not controlled, your pain is worsening and your temperature is above 101 Follow-up/Referrals: Kayden Jensen MD [Primary Care Provider] - (follow up after discharge from the [facility] ) Diet: Heart Healthy Addtl Attending Provider Instructions: Ms. Lawrence, You were hospitalized after having worsening confusion and falls at home, this was found to be from a UTI and pneumonia. You have been treated with antibiotics and will be going back to the [facility] for rehab to get stronger. You will need an additional 4 days of augmentin and 2 more days of azithromycin. These have been sent into the pharmacy. Pain control: PO tylenol prn Please follow up with your PCP after discharge from rehab. You have blood cultures pending at the time of discharge, they are negative at 48 hours but take 5 days to get final results. If they turn positive you will be notified, you can also check in with your PCP or the [facility] portal. However, given your symptoms I do not expect they will be positive. Pending Studies at Discharge: Yes (blood cultures ) Stand-Alone Forms: My [facility] Skilled Items Patient informed of condition?: Yes DNR: No Discharge Level of Care: Skilled Communicable Disease: No Discharge Prognosis: Stable Lines: None Urinary Catheter: No Medications and DC Order Prescriptions: New azithromycin 250 mg Tablet 250 mg PO QAM 2 Days Qty: 2 0RF amoxicillin-pot clavulanate 875-125 mg Tablet 1 tab PO BIDM 4 Days Qty: 8 0RF Continued aspirin 81 mg tablet,delayed release (DR/EC) 81 mg PO DAILY diltiazem HCl [Cardizem CD] 120 mg capsule,extended release 24hr 120 mg PO DAILY Qty: 30 0RF simvastatin 20 mg tablet 20 mg PO HS donepezil 5 mg tablet 5 mg PO HS Eliquis 2.5 mg tablet 2.5 mg PO BID cholecalciferol (vitamin D3) [Vitamin D3] 25 mcg (1,000 unit) Tablet 25 mcg PO DAILY Discharge Orders: Discharge Order (Routine); Ordered 06/27/24 Ordered By: Marita Diaz/Other Patient Handouts: UTIs Admission Data Admit Date/Time: 06/26/24 15:37 Attending Provider: Rupal Reyes Admit Provider: Alton Byrd Primary Care Provider: Kayden Jensen Other Providers: Alton Byrd Other Interventions: Discharge Summary Assessment (RN) Last Done: 06/27/24 11:08 Hospital Stay Data Consultations 06/25/24 00:32 ED Decision to Admit Stat Diagnostic Imagining Performed Lumbar Spine CT 06/24/24 21:31 Exam(s): CT L SPINE EXAM: CT Lumbar Spine Without Intravenous Contrast CLINICAL HISTORY: Reason for exam: fall. TECHNIQUE: Axial computed tomography images of the lumbar spine without intravenous contrast. CTDI is 36.43 mGy and DLP is 1797.53 mGy-cm. Automated exposure control was utilized for the study. A dose lowering technique was utilized adhering to the principles of ALARA. COMPARISON: No relevant prior studies available. FINDINGS: Vertebrae: No acute fracture or malalignment. Chronic superior endplate compression deformity at L3. No malalignment. No spinal canal or foraminal stenosis. Sacrum/coccyx: Insufficiency fracture in the left sacral ala. Discs/spinal canal/neural foramina: See above. Soft tissues: Unremarkable. IMPRESSION: 1. No acute fracture or malalignment. 2. Insufficiency fracture in the left sacral ala. 3. Chronic compression deformity of L3. Electronically signed by: Sanya Cardona MD 06/24/24 23:[address] 06/24/24 21:31 Exam(s): CT T SPINE EXAM: CT Thoracic Spine Without Intravenous Contrast CLINICAL HISTORY: Reason for exam: fall. TECHNIQUE: Axial computed tomography images of the thoracic spine without intravenous contrast. CTDI is 36.43 mGy and DLP is 1797.53 mGy-cm. Automated exposure control was utilized for the study. A dose lowering technique was utilized adhering to the principles of ALARA. COMPARISON: No relevant prior studies available. FINDINGS: Vertebrae: No fracture or malalignment. Soft tissues: Fibrotic changes in the lungs. IMPRESSION: No fracture or malalignment. Electronically signed by: Sanya Cardona MD 06/24/24 23:29 PM Chest X-Ray 06/24/24 21:32 Exam(s): XR CXR 1 VIEW EXAM: XR Chest, 1 View CLINICAL HISTORY: Reason for exam: weakness. TECHNIQUE: Frontal view of the chest. COMPARISON: Prior chest x-ray from December 23, 2015 FINDINGS: Lungs: Mild to moderate peribronchial thickening of the central and lower lobe bronchi with increased interstitial opacities throughout the lungs and patchy opacity at the left lung base. There is hyperinflation lungs and flattening of the diaphragms. Pleural space: Unremarkable. No pneumothorax. Heart: Unremarkable. No cardiomegaly. Mediastinum: Unremarkable. Normal mediastinal contour. Bones/joints: Diffuse osteopenia throughout the visualized bones. No acute fracture. IMPRESSION: Left lower lobe infiltrate. Electronically signed by: Yaneyl Tang MD 06/25/24 00:[address] 06/24/24 21:32 Exam(s): CT HEAD Without Contrast EXAM: CT Head Without Intravenous Contrast CLINICAL HISTORY: Reason for exam: fall. TECHNIQUE: Axial computed tomography images of the head/brain without intravenous contrast. CTDI is 36.43 mGy and DLP is 1797.53 mGy-cm. Automated exposure control was utilized for the study. A dose lowering technique was utilized adhering to the principles of ALARA. COMPARISON: Prior head CT from June 23, 2024. FINDINGS: Brain: Unremarkable. No hemorrhage. Mild nonspecific [place]laner changes. No edema. Ventricles: Moderate ventriculomegaly. Bones/joints: Unremarkable. No acute fracture. Soft tissues: Unremarkable. Sinuses: Unremarkable as visualized. No acute sinusitis. Mastoid air cells: Unremarkable as visualized. No mastoid effusion. IMPRESSION: No evidence of acute intracranial pathology. Electronically signed by: Yanely Tang MD 06/25/24 00:42 AM Pending Results Patient Have Any Pending Studies at Discharge: Yes (blood cultures ) Discharge Instructions Given to Patient (Per Discharging Provider) Ms. Lawrence, You were hospitalized after having worsening confusion and falls at home, this was found to be from a UTI and pneumonia. You have been treated with antibiotics and [facility]. You will need an additional 4 days of augmentin and 2 more days of azithromycin. These have been sent into the pharmacy. Pain control: PO tylenol prn Please follow up with your PCP after discharge from rehab. You have blood cultures pending at the time of discharge, they are negative at 48 hours but take 5 days to get final results. If they turn positive you will be notified, you can also check in with your PCP or the [facility] portal. However, given your symptoms I do not expect they will be positive. Supervising Physician Co-Signing Physician Notes PA Supervision Note: I did not personally see or examine the patient today, but I verified all rizzo points of JAH Almaraz's assessment and plan with the following exceptions/additions: None Total Time Total Time Spent Total Time Spent (In Minutes): Time spent day of discharge 35 minutes including direct patient care, medication reconciliation, documentation, review of labs and images, and coordination of care. Coding Level of Care Code 36863 INP/OBS DISCH >30 MIN Diagnoses Fall from standing W19.XXXA Encounter type: initial encounter Left lower lobe pneumonia J18.9 Urinary tract infection N39.0 Confusion R41.0 Agitation R45.1
== END 2024-06-27 13:40 | DRG 542 ==
LOC: EDINP 18:16 → ED 18:16 → SUATTDRO 06-25 01:44 → 3W 06-25 12:55